=== PATIENT | female | born 1975 | race Asian ===

== ENCOUNTER 2019-09-14 03:31 | Emergency (ER) | payer OTHER ==
[~2019-09-14] VITALS: Ht 157.5 cm; Wt 59.0 kg
[2019-09-14] MEDS ORDERED: PEPCID40 MG PO (06:26)
[2019-09-14] MEDS ORDERED: PHENERGAN25 MG PO (06:26)
== END 2019-09-14 07:39 ==
LOC: ER 03:31
DX: K29.60 Other gastritis without bleeding (principal)